=== PATIENT | female | born 1995 | race Hispanic/Latino ===

== ENCOUNTER 2017-01-02 23:43 | Emergency (ER) | payer SELFPAY ==
[2017-01-03] MEDS ORDERED: Ondansetron ODT 4 MG TAB ONE (00:09)
[2017-01-03] MEDS ORDERED: HYDROcodone/Acetaminophen 10/325 mg Tablet ONE (00:44)
--- NOTE | 2017-01-03 07:59 | CT ---
PRELIMINARY REPORT/[facility]/EMERGENCY AFTER HOURS PROCEDURE: EXAM: CT Head Without Intravenous Contrast. CLINICAL HISTORY: 21 years old, female; Injury or trauma; Fall; Initial encounter; Blunt trauma (contusions or hematom as); With loss of consciousness; Not specified; Injury date: 01/02/17; Injury details: Fell down 1 f light of stairs, loc of unknown time. Complains of head and neck pain. ; Patient HX: Pt says she jus t doesnt feel right; TECHNIQUE: Axial computed tomography images of the head/brain without intravenous contrast. COMPARISON: No relevant prior studies available. FINDINGS: No definite or depressed skull fracture. Included paranasal sinuses are essentially clear. No acute intracranial hemorrhage or mass effect. Ventricle size is normal for age. No definite acute infarct by CT. IMPRESSION: No acute intracranial bleed or mass effect. Please see subsequent CT facial bone report for complete evaluation of the facial bones. Thank you for allowing us to participate in the care of your patient. Dictated and Authenticated by: Corby Cai MD 01/03/2017 1:05 AM Central Time ([place] \[place]\ [place]) FINAL REPORT BRAIN CT WITHOUT IV CONTRAST: This is the final report. TIME: 12:21 a.m. DATE: 01/03/17. FINDINGS/IMPRESSION: No mass or bleed or other significant acute intracranial process. POS: OFF
--- NOTE | 2017-01-03 08:02 | CT ---
PRELIMINARY REPORT/[facility]/EMERGENCY AFTER HOURS PROCEDURE: EXAM: CT Maxillofacial Without Intravenous Contrast. CLINICAL HISTORY: 21 years old, female; Injury or trauma; Fall; Initial encounter; Concussion /head injury; Loss of co nsciousness; Injury date: 01/02/2017; Injury details: Fell down 1 flight of stairs, loc of unknown t samir. ; Patient HX: Fell down flight of stairs; C/O face and head pain, more severe to the rt side; N o abrasions or swelling evident at time of scan; Additional info: Pt could not get her nose ring to come out; No abrasions or swelling evident at time of scan TECHNIQUE: Axial computed tomography images of the face without intravenous contrast. Coronal and sagittal reformatted images were created and reviewed. COMPARISON: No relevant prior studies available. FINDINGS: No definite evidence of acute facial bone fracture. Orbital contents appear intact/unremarkable. Included paranasal sinuses appear clear. IMPRESSION: No definite acute facial bone/orbital fracture by CT. Thank you for allowing us to participate in the care of your patient. Dictated and Authenticated by: Corby Cai MD 01/03/2017 1:23 AM Central Time ([place] \[place]\ [place]) FINAL REPORT FACIAL BONE CT WITHOUT IV CONTRAST: EMERGENCY AFTER HOURS EXAMINATION TIME: 12:25 a.m. DATE: 11/02/17. FINDINGS/IMPRESSION: No evidence for acute facial bone fracture or other acute process. POS: OFF
--- NOTE | 2017-01-03 08:03 | CT ---
PRELIMINARY REPORT/[facility]/EMERGENCY AFTER HOURS PROCEDURE: EXAM: CT Cervical Spine Without Intravenous Contrast. CLINICAL HISTORY: 21 years old, female; Injury or trauma; Fall; Initial encounter; Concussion /head injury; Injury cate e: 01/02/2017; Injury details: Fell down flight of stairs, loc of unknown time. ; Additional info: Pt could not get her nose ring to come out; No abrasions or swelling evident at time of scan TECHNIQUE: Axial computed tomography images of the cervical spine without intravenous contrast. Coronal and sagittal reformatted images were created and reviewed. COMPARISON: No relevant prior studies available. FINDINGS: On axial CT images, no definite acute fracture is visible. Sagittal and coronal reconstructions show no fracture or subluxation. No definite/significant disc herniation by CT, MRI could be more sensitive if clinically indicated. IMPRESSION: No definite acute fracture or subluxation by CT. Other findings discussed above. Thank you for allowing us to participate in the care of your patient. Dictated and Authenticated by: Corby Cai MD 01/03/2017 1:08 AM Central Time ([place] \[place]\ [place]) FINAL REPORT CERVICAL SPINE CT SCAN WITHOUT IV CONTRAST: EMERGENCY AFTER HOURS EXAMINATION No fracture or facet dislocation. POS: OFF
--- NOTE | 2017-01-03 08:06 | CT ---
PRELIMINARY REPORT/[facility]/EMERGENCY AFTER HOURS PROCEDURE: EXAM: CT Chest Without Intravenous Contrast. CLINICAL HISTORY: 21 years old, female; Injury or trauma; Fall; Initial encounter; Concussion /head injury; Injury cate e: 01/02/2017; Injury details: Fell down 1 flight of stairs, loc of unknown time. ; Patient HX: Stat es she hurts more on rt side, unable to give exact location; Additional info: Pt could not get her n ose ring to come out; No abrasions or swelling evident at time of scan TECHNIQUE: Axial computed tomography images of the chest without intravenous contrast. Coronal reformatted images were created and reviewed. COMPARISON: No relevant prior studies available. FINDINGS: Lungs: No acute findings. No mass. No consolidation. Pleural space: No acute findings. No pneumothorax. No significant effusion. Heart: No acute findings. No cardiomegaly. No significant pericardial effusion. Bones/joints: No acute fracture. Soft tissues: No acute finding. Vasculature: No aortic aneurysm. Lymph nodes: No enlarged lymph nodes. IMPRESSION: No acute findings. Thank you for allowing us to participate in the care of your patient. Dictated and Authenticated by: Pietro Benedict MD 01/03/2017 1:42 AM Central Time ([place] \[place]\ [place]) FINAL REPORT EMERGENCY AFTER HOURS CHEST CT SCAN WITHOUT IV CONTRAST: Date: 01/03/17 Time: 0034 hours IMPRESSION: No pneumothorax or pleural effusion. No mediastinal hematoma. Exam is limited due to lack of IV cont rast. Report in agreement with preliminary report given on-call by [facility]. POS: OFF
== END 2017-01-03 01:55 | disposition home or self-care (01) ==
LOC: NAV ERS 23:43
DX: S16.1XXA Strain of muscle, fascia and tendon at neck level, initial encounter (principal); S00.83XA Contusion of other part of head, initial encounter; S20.211A Contusion of right front wall of thorax, initial encounter; Z79.899 Other long term (current) drug therapy; W10.9XXA Fall (on) (from) unspecified stairs and steps, initial encounter
CPT/HCPCS: 70450; 70486; 71250; 72125; 93005; Q0162

== ENCOUNTER 2017-05-11 12:59 | Emergency (ER) | payer SELFPAY ==
[2017-05-11 14:06] LABS: Bilirubin Negative (Negative); Blood, Urine Trace (Negative); Clarity Hazy (Clear); Glucose, Urine (Dipstick) Negative (Negative); Leukocyte Large (Negative); Nitrite Negative (Negative); Protein, Urine (Dipstick) 30 mg/dL (Neg-Trace); Specific Gravity, Urine 1.015 (1.005-1.030); Urobilinogen 0.2 mg/dL (0.2-1.0); pH, Urine 8.5 (5.0-9.0)
[2017-05-11 14:16] LABS: Bacteria/HPF 2+ HPF (None Seen); RBC/HPF 0-3 HPF (0-3)
[2017-05-11 14:17] LABS: Pregnancy Test - Urine (BHCG) Negative (NEGATIVE); Pregu Control Background? CLEAR/WHITE (CLR/WHITE); Pregu Control Bar Appear? YES (CONTROL BAR); Specific Gravity 1.015 (1.002-1.036)
== END 2017-05-11 14:45 | disposition home or self-care (01) ==
LOC: NAV ERS 12:59
DX: N39.0 Urinary tract infection, site not specified (principal); B37.3 Candidiasis of vulva and vagina; F41.9 Anxiety disorder, unspecified; F32.9 Major depressive disorder, single episode, unspecified
CPT/HCPCS: 81003; 81015; 81025; 87086; 99283

== ENCOUNTER 2017-08-04 10:28 | Emergency (ER) | payer SELFPAY ==
[2017-08-04] MEDS ORDERED: Sodium Chloride 0.9% 1,000 ML ONE (11:08)
[2017-08-04 11:49] LABS: Pregnancy Test - Urine (BHCG) Negative (Negative); Pregu Control Background? CLEAR/WHITE (CLR/WHITE); Pregu Control Bar Appear? YES (CONTROL BAR)
[2017-08-04 11:50] LABS: #Basophils 0.1 thou/uL (0.0-0.2); #Eosinphils 0.1 thou/uL (0.0-0.7); #Lymphocytes 1.3 thou/uL (1.20-3.40); #Monocytes 0.5 thou/uL (0.11-0.59); #Neutrophils 6.5 thou/uL (1.40-6.50); %Basophils 0.7 % (0.0-1.0); %Eosinophils 0.8 % (0.0-10.0); %Lymphocytes 15.6 % (21.0-51.0); %Monocytes 5.5 % (0.0-10.0); %Neutrophils 77.4 % (42.0-75.0); Hemoglobin 11.6 g/dL (12.0-16.0); Mean Corpuscular HGB CONC 31.4 g/dL (32.0-36.0); Mean Corpuscular Hemoglobin 23.8 pg (27.0-31.0); Mean Corpuscular Volume 75.8 fl (81.0-99.0); Mean Platelet Volume 8.5 fL (7.4-10.4); Platelet Count 296 thou/uL (130-400); RBC Distribution Width 13.5 % (11.5-14.5); White Blood Cell (WBC) Count 8.4 thou/uL (4.8-10.8)
[2017-08-04 11:55] LABS: ALT (SGPT) 13 U/L (8-55); AST (SGOT) 12 U/L (5-34); Albumin 4.1 g/dL (3.5-5.0); Alkaline Phosphatase 73 U/L (40-150); Anion Gap 13 mmol/L (10-20); BUN (Urea Nitrogen) 8 mg/dL (7.0-18.7); Bilirubin, Total 0.3 mg/dL (0.2-1.2); Calc. Creatinine Clearance 0 mL/min (70-130); Calcium 9.5 mg/dL (7.8-10.44); Carbon Dioxide 24 mmol/L (22-29); Chloride 105 mmol/L (98-107); Estimated GFR-MDRD 79; Globulin 4.1 g/dL (2.4-3.5); Glucose 82 mg/dL (70-105); Potassium 3.7 mmol/L (3.5-5.1); Protein, Total 8.2 g/dL (6.0-8.3); Sodium 138 mmol/L (136-145)
[2017-08-04 12:16] LABS: Bilirubin Negative (Negative); Blood, Urine Trace (Negative); Clarity Slightly Cloudy (Clear); Glucose, Urine (Dipstick) Negative (Negative); Leukocyte Moderate (Negative); Nitrite Negative (Negative); Protein, Urine (Dipstick) Negative (Neg-Trace); Urobilinogen 0.2 mg/dL (0.2-1.0); pH, Urine 8.5 (5.0-9.0)
[2017-08-04 12:21] LABS: Bacteria/HPF 1+ HPF (None Seen); Crystals/HPF 1+ AMORPH URATES HPF (Negative); RBC/HPF 0-3 HPF (0-3); Squamous Epithelial 0-3 HPF (0-3); Trichomonas/HPF 1+ HPF (None Seen)
[2017-08-04] MEDS ORDERED: Ondansetron HCl/PF 4 MG/2 ML Vial ONE (12:24)
[2017-08-04] MEDS ORDERED: Loperamide HCl 2 MG CAP ONE (12:24)
== END 2017-08-04 12:52 | disposition home or self-care (01) ==
LOC: NAV ERS 10:28
DX: K52.9 Noninfective gastroenteritis and colitis, unspecified (principal); H65.92 Unspecified nonsuppurative otitis media, left ear; A59.01 Trichomonal vulvovaginitis; N39.0 Urinary tract infection, site not specified; F41.9 Anxiety disorder, unspecified; F32.9 Major depressive disorder, single episode, unspecified; F43.10 Post-traumatic stress disorder, unspecified
CPT/HCPCS: 80053; 81003; 81015; 81025; 85025; 87086; 96361; 96374; J2405; J7050

== ENCOUNTER 2018-12-22 16:33 | Outpatient (CLI) | payer OTHER ==
[2018-12-22 16:53] LABS: BHCG - Serum Negative (NEGATIVE); Pregs Control Bar Appear? YES (CONTROL BAR)
== END 2018-12-22 16:34 | disposition home or self-care (01) ==
LOC: NAV LABSP 16:33
DX: Z00.00 Encounter for general adult medical examination without abnormal findings (principal)
CPT/HCPCS: 84703

== ENCOUNTER 2024-10-14 13:35 | Outpatient (CLI) | payer OTHER ==
[2024-10-14 14:12] LABS: BHCG - Serum Negative (NEGATIVE); Pregs Control Bar Appear? YES (CONTROL BAR)
== END 2024-10-14 13:36 | disposition home or self-care (01) ==
LOC: NAV LAB 13:35
PROVIDERS: ATTEND Pathology Anatomic Pathology & Clinical Pathology
DX: Z00.00 Encounter for general adult medical examination without abnormal findings (principal)
CPT/HCPCS: 36415; 84703

== ENCOUNTER 2025-10-07 17:13 | Outpatient (CLI) | payer OTHER ==
[2025-10-07 17:44] LABS: BHCG - Serum Negative (NEGATIVE); Pregs Control Bar Appear? YES (CONTROL BAR)
== END 2025-10-07 17:14 | disposition home or self-care (01) ==
LOC: NAV LAB 17:13
PROVIDERS: ATTEND Pathology Anatomic Pathology & Clinical Pathology
DX: Z00.00 Encounter for general adult medical examination without abnormal findings (principal)
CPT/HCPCS: 36415; 84703